=== PATIENT | female | born 1970 | race African-American/Black ===

== ENCOUNTER → 2017-04-27 | Outpatient (CLI) | payer BC ==
[2015-12-15 01:30] VITALS: BP 159/72
--- NOTE | 2017-04-28 09:13 | RAD ---
DATE: 04/27/2017 EXAM: DIGITAL SCREEN BILAT W/CAD HISTORY: First time mammogram for routine screening. COMPARISON: None This study was interpreted with the benefit of Computerized Aided Detection (CAD). FINDINGS: Breast Density: SCATTERED The breast parenchyma shows scattered fibroglandular densities. Breast parenchyma level B. Skin and nipples are within normal limits. No suspicious calcifications, spiculated mass or architectural distortion. IMPRESSION: No mammographic evidence of malignancy. BI-RADS CATEGORY: 1 NEGATIVE RECOMMENDED FOLLOW-UP: 12M 12 MONTH FOLLOW-UP PQRS compliance statement: Patient information was entered into a reminder system with a target due date 04/27/2018 for the next mammogram. Mammography is a sensitive method for finding small breast cancers, but it does not detect them all and is not a substitute for careful clinical examination. A negative mammogram does not negate a clinically suspicious finding and should not result in delay in biopsying a clinically suspicious abnormality. "Our facility is accredited by the [employer] Mammography [employer]."
== END | disposition home or self-care (01) ==
LOC: MAMMO 14:11
PROVIDERS: ATTEND Family Medicine
DX: Z12.31 Encounter for screening mammogram for malignant neoplasm of breast (principal)
CPT/HCPCS: G0202; 77067

== ENCOUNTER → 2020-11-23 | Outpatient (CLI) | payer BC ==
[2015-12-15 01:30] VITALS: BP 159/72
--- NOTE | 2020-11-23 13:37 | RAD ---
DATE: 11/23/2020 7:56 AM EXAM: MAMMO IRMA SCREENING BILATERAL HISTORY: Screening COMPARISON: 04/27/2017 Bilateral CC and MLO views of the breasts were performed. Bilateral breast tomosynthesis was performed in CC and MLO projections. This study was interpreted with the benefit of Computerized Aided Detection (CAD). FINDINGS: Breast Density: SCATTERED The breast parenchyma shows scattered fibroglandular densities. Breast parenchyma level B Interval increase in density in the posterior upper outer quadrant right breast could represent a developing asymmetry that needs additional imaging and correlation with interval clinical history. MLO tomographic image 40 of 91 raises question of possible associated architectural distortion. Negative left mammogram. IMPRESSION: Incomplete. Developing asymmetry in the upper outer right breast posteriorly needs additional imaging. Recommend a full-field lateral view with 2-D and 3-D technique, spot compression views and targeted right breast ultrasound. BI-RADS CATEGORY: 0 INCOMPLETE: NEEDS ADDITIONAL IMAGING EVALUATION AND/OR PRIOR MAMMOGRAMS FOR COMPARISON. RECOMMENDED FOLLOW-UP: ADD ADDITIONAL IMAGING The patient will be contacted to return for additional imaging and a supplemental report will follow. PQRS compliance statement: Patient information was entered into a reminder system with a target due date for the next mammogram. Mammography is a sensitive method for finding small breast cancers, but it does not detect them all and is not a substitute for careful clinical examination. A negative mammogram does not negate a clinically suspicious finding and should not result in delay in biopsying a clinically suspicious abnormality. "Our facility is accredited by the [employer] Mammography [employer]."
== END ==
LOC: MAMMO 09:40
PROVIDERS: ATTEND Internal Medicine
DX: Z12.31 Encounter for screening mammogram for malignant neoplasm of breast (principal)
CPT/HCPCS: 77063; 77067

== ENCOUNTER → 2020-12-06 | Outpatient (CLI) | payer BC ==
[2015-12-15 01:30] VITALS: BP 159/72
--- NOTE | 2020-12-13 09:33 | RAD ---
DATE: 12/06/2020 EXAM: MAMMO IRMA DIAG RT, BREAST RIGHT HISTORY: Recall for asymmetry in the upper outer right breast. COMPARISON: 11/23/2020 and 04/27/2017 This study was interpreted with the benefit of Computerized Aided Detection (CAD). Breast Density: SCATTERED The breast parenchyma shows scattered fibroglandular densities. Breast parenchyma level B. FINDINGS: MAMMOGRAM: The asymmetry in the upper outer right breast does not definitively persist on spot compression CC view or full-field ML view. ULTRASOUND: Ultrasound of the upper outer quadrant of the right breast was performed by the ammunition supervisor and again by the radiologist in real-time. There is normal fibroglandular tissue. No suspicious mass, cyst, or architectural distortion. IMPRESSION: No definite persistent mammographic or sonographic abnormality identified. Recommend 6 month follow-up mammogram with possible ultrasound if indicated to ensure stability. BI-RADS CATEGORY: 3 PROBABLY BENIGN FINDING(S)-SHORT INTERVAL FOLLOW-UP SUGGESTED RECOMMENDED FOLLOW-UP: Right breast diagnostic mammogram and possible right breast ultrasound if needed. PQRS compliance statement: Patient information was entered into a reminder system with a target due date for the next mammogram. Mammography is a sensitive method for finding small breast cancers, but it does not detect them all and is not a substitute for careful clinical examination. A negative mammogram does not negate a clinically suspicious finding and should not result in delay in biopsying a clinically suspicious abnormality. "Our facility is accredited by the [employer] Mammography [employer]." [facility]
== END ==
LOC: MAMMO 10:34
PROVIDERS: ATTEND Internal Medicine
DX: R92.2 Inconclusive mammogram (principal)
CPT/HCPCS: 76641; 77065; G0279; 77061